=== PATIENT | male | born 1970 | race Caucasian/White ===

== ENCOUNTER 2017-12-04 05:53 | Emergency (ER) ==
[2017-12-04 06:07] VITALS: BP 124/91; TEMP 97.6; BMI 30.4
[2017-12-04] MEDS ORDERED: TORADOL IM STA (06:28)
[2017-12-04] MEDS ORDERED: NORFLEX IM STA (06:28)
[2017-12-04] MEDS ORDERED: STADOL IM STA (06:29)
--- NOTE | 2017-12-04 06:33 | ED.PDOC ---
General ED Provider: Dr. BENTLEY LAND Chief Complaint: Back Pain Stated Complaint: Patient states that he has a history of back pain and sees pain management and is on Percocets for pain control. He states that he recently helped his [id number] move some furniture which make his symptoms worse. pain is located on the mid back and lower back. State he ran out of his percocets for the last 4 days. Time Seen by Physician: 06:20 Mode of Arrival: Walk-In Information Source: Patient Exam Limitations: No limitations Primary Care Provider: AMPARO SILVA Nursing and Triage Documentation Reviewed and Agree: Yes Does patient meet sepsis criteria?: No System Inflammatory Response Syndrome: Not Applicable Sepsis Protocol: For patient's 13 years and over: Temp is 96.8 and below OR 101 and greater Pulse >90 BPM Resp >20/minute Acutely Altered Mental Status Are patient's symptoms suggestive of a new infection, such as: -Pneumonia -Skin, Soft Tissue -Endocarditis -UTI -Bone, Joint Infection -Implantable Device -Acute Abdominal Infection -Wound Infection -Meningitis -Blood Stream Catheter Infection -Unknown Review of Systems - Review Of Systems Constitutional: Reports: No symptoms Eyes: Reports: No symptoms Ears, Nose, Mouth, Throat: Reports: No symptoms Respiratory: Reports: No symptoms Cardiac: Reports: No symptoms GI: Reports: No symptoms : Reports: No symptoms Musculoskeletal: Reports: Back pain Skin: Reports: No symptoms Neurological: Reports: Anxiety Endocrine: Reports: No symptoms Hematologic/Lymphatic: Reports: No symptoms All Other Systems: Reviewed and Negative Past Medical History - Past Medical History Previously Healthy: Yes Endocrine: Reports: None Cardiovascular: Reports: None Respiratory: Reports: None Hematological: Reports: None Gastrointestinal: Reports: GERD Genitourinary: Reports: Kidney stones Neuro/Psych: Reports: CVA, Migraine, Depression Musculoskeletal: Reports: Back Pain Cancer: Reports: None - Surgical History General Surgical History: Reports: Orthopedic (Farhad in the right femur post fall 15 feet 1998), Back Surgery (plate in the neck from fx) - Family History Family History: Reports: Unknown - Social History Smoking Status: Current every day smoker, Heavy tobacco smoker 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 ) Skin: Warm, Dry Neurological: Motor intact, Alert, Oriented Psychiatric: Anxious Re-Evaluation - Re-Evaluation Time of Re-Evaluation: 07:06 Status: Improved Pain Level: much better Critical Care Note - Critical Care Note Total Time (mins): 0 Comments: Patient states his PCP will be out of town for the next 5 days. Course - Course Orders, Labs, Meds: Orders Category Date Time Status Butorphanol Tartrate [Stadol] MEDS 12/04/17 06:29 Discontinued 2 mg IM ONCE STA Ketorolac Tromethamine [Toradol] MEDS 12/04/17 06:28 Discontinued 60 mg IM ONCE STA Medications Discontinued Medications Generic Name Dose Route Start Last Admin Trade Name Freq PRN Reason Stop Dose Admin Butorphanol Tartrate 2 mg 12/04/17 06:29 12/04/17 06:35 Stadol IM 12/04/17 06:30 2 mg ONCE STA Administration Ketorolac Tromethamine 60 mg 12/04/17 06:28 12/04/17 06:36 Toradol IM 12/04/17 06:29 60 mg ONCE STA Administration Vital Signs: Temp Pulse Resp BP Pulse Ox 12/04/17 05:54 97.6 F 84 20 124/91 H 97 Departure - Departure Time of Disposition: 07:08 Disposition: HOME SELF-CARE Discharge Problem: Low back strain Qualifiers: Encounter type: initial encounter Qualified Code(s): S39.012A - Strain of muscle, fascia and tendon of lower back, initial encounter Instructions: Low Back Strain (ED), Lower Back Exercises (ED) Condition: Fair Pt referred to PMD for follow-up: Yes IPMP verified?: No (no narcotis will be prescribed ) Additional Instructions: Follow up with you pain management doctor in 1-2 days Rest Prescriptions: Oxycodone HCl/Acetaminophen [Percocet 7.5-325 mg Tablet] 1 each PO Q8H PRN #25 tablet PRN Reason: severe pain Allergies/Adverse Reactions: Allergies sulfamethoxazole [From Bactrim] Adverse Reaction (Verified 12/04/17 06:09) trimethoprim [From Bactrim] Adverse Reaction (Verified 12/04/17 06:09) Vomiting Home Medications: Ambulatory Orders Aspirin [Aspirin EC] 81 mg PO DAILY 12/04/17 Fenofibrate,Micronized [Fenofibrate] 1 cap PO BEDTIME 12/04/17 Oxycodone HCl/Acetaminophen [Percocet 7.5-325 mg Tablet] 1 each PO Q8H PRN #25 tablet 12/04/17 Oxycodone-Acetaminophe 7.5-325 [Percocet 7.5-325] 1 tab PO TID PRN 12/04/17 Tamsulosin HCl [Flomax] 0.4 mg PO BEDTIME 12/04/17 Disposition Discussed With: Patient, Family
== END 2017-12-04 07:10 | disposition home or self-care (01) ==
LOC: ED 05:53
DX: S39.012A Strain of muscle, fascia and tendon of lower back, initial encounter (principal); X50.9XXA Other and unspecified overexertion or strenuous movements or postures, initial encounter; F17.210 Nicotine dependence, cigarettes, uncomplicated
CPT/HCPCS: 96372; 99283

== ENCOUNTER 2018-11-08 11:17 | Emergency (ER) | payer OTHER ==
[2018-11-08 11:21] VITALS: BMI 29.0
[2018-11-08] MEDS: MORPHINE 2 MG/ML SYRINGE IVP STA (11:56)
[2018-11-08] MEDS: ZOFRAN 4 MG/2 ML IVP STA (11:58)
--- NOTE | 2018-11-08 13:05 | CT ---
EXAM: CT THORAX HISTORY: Chest pain, anteriorly xyphoid region. TECHNIQUE: CT thorax without intravenous contrast. Multiplanar images presented. COMPARISON: 08/25/2018 FINDINGS: Normal heart size. No pericardial effusion is seen. Thoracic aorta is within normal limits on this unenhanced exam. No gross evidence of lymphadenopathy. There may be a small 6 mm nodule in the right upper lobe, axial image 26 not definitely seen on prior study. The nodular opacities previously described in the left posterior lung base have mostly resol naveed with a tiny stable 2 mm nodule remaining present. There is no vascular congestion, pneumothorax or pleural fluid. The bones in the region of the xyphoid process have no abnormality. Spine is within normal limits. There is stabilization hardware of the lower cervical spine. IMPRESSION: 1. No abnormality identified in the region of interest, xyphoid process area. 2. A few scattered nonspecific pulmonary nodules could be postinflammatory. If the patient has risk factors for neoplasia. Follow-up CT in 4-6 months can be considered.
--- NOTE | 2018-11-08 14:45 | CT ---
EXAM: CT angiogram chest HISTORY: Chest pain COMPARISON: CT chest without contrast 11/08/2018 TECHNIQUE: CT angiogram chest performed with intravenous contrast. Coronal and sagittal reformatted images obtained. 3-D reformatted images created. FINDINGS: Thoracic inlet unremarkable. Heart normal in size. No pericardial effusion. Aorta adonis l in caliber. No aortic dissection. Esophagus unremarkable. No lymphadenopathy identified in the c hest. Visualized portion upper abdomen demonstrates no acute abnormality. Mild colonic diverticulos is is incompletely imaged. No acute abnormalities of the bones. Cervical spinal fusion hardware is incompletely imaged. Central airway patent. No airspace consolidation. No pleural effusion. No pn eumothorax. A few scattered nonspecific pulmonary nodules are unchanged from CT chest same day. Mil d bilateral lower airway thickening. No pleural effusion or pneumothorax. No filling defects identi fied in the pulmonary arteries to the segmental level to suggest a pulmonary embolism. Limited evalu ation of portions of the subsegmental pulmonary arteries due to areas of artifact. IMPRESSION: 1. No evidence for pulmonary embolism to the segmental level. 2. Mild bilateral lower airway thickening, may suggest small airways infection/inflammation. No air space consolidation. 3. A few scattered nonspecific pulmonary nodules could be post inflammatory. CT chest follow-up cou ld be considered 4 - 6 months to assure stability.
[2018-11-08] MEDS ORDERED: DILAUDID IM STA (16:10)
[2018-11-08] MEDS ORDERED: DILAUDID 0.5 MG/0.5 ML SYRINGE IM STA (16:13)
[2018-11-08] MEDS: DILAUDID 0.5 MG/0.5 ML SYRINGE IVP STA (16:25)
--- NOTE | 2018-11-08 17:12 | ED.PDOC ---
General ED Provider: Dr. JASON JOHNSON Chief Complaint: Chest Pain Stated Complaint: chest pain midsternal sudden x 1 day pain is intermittent and can entirely be reproduced by palpationof his ant chest wall Time Seen by Physician: 11:20 (his nurse at all times ) Mode of Arrival: Walk-In Information Source: Patient Exam Limitations: No limitations Primary Care Provider: KAROL FLOWERS Nursing and Triage Documentation Reviewed and Agree: Yes Does patient meet sepsis criteria?: No System Inflammatory Response Syndrome: Not Applicable Sepsis Protocol: For patient's 13 years and over: Temp is 96.8 and below OR 101 and greater Pulse >90 BPM Resp >20/minute Acutely Altered Mental Status Are patient's symptoms suggestive of a new infection, such as: -Pneumonia -Skin, Soft Tissue -Endocarditis -UTI -Bone, Joint Infection -Implantable Device -Acute Abdominal Infection -Wound Infection -Meningitis -Blood Stream Catheter Infection -Unknown Cardiovascular Complaint Exam - Chest Pain Complaint/Exam Onset: Gradual Duration: 1 day Symptoms Are: Still present Timing: Intermittent Length of Chest Pain Episodes: 1 hour Initial Severity: Severe Current Severity: Moderate Location: Reports: Midsternal Pain Radiates: Reports: None Character: Reports: Sharp Aggravating: Reports: Movement Alleviating: Reports: Rest, Spontaneous resolution. Denies: OTC meds (none taken) Associated Signs and Symptoms: Denies: Diaphoresis, Nausea, Vomiting, Fever, Palpitations, Cough, Hemoptysis, Back pain, Abdominal pain, Dizziness, Short of air, Calf pain, Calf swelling Related History: Reports: Similar episode Related Surgical History: Reports: None History of Healthcare-Acquired Pneumonia: Reports: No AMI/ACS Risk Factors: Reports: Sedentary TAD Risk Factors: Reports: None Pulmonary Embolism Risk Factors: Reports: Bedrest Prior Care for this Complaint: No Recent Stress Test: No Recent Echo/LV Function: No JVD Present: No Subcutaneous Emphysema Present: No Diminshed Breath Sounds: No Reproducible Chest Wall Pain: No Bilateral Pulses Present: No Unequal Pulses Noted: No If Risk Factors for AMI/ACS Consider: EKG, Cardiac Enzymes Quality Indicators For Acute OR or Cardiac Chest Pain: EKG in 10min. Quality Indicator For Non-Traumatic Chest Pain/Syncope: EKG Performed Review of Systems - Review Of Systems Constitutional: Reports: No symptoms Eyes: Reports: No symptoms Ears, Nose, Mouth, Throat: Reports: No symptoms Respiratory: Reports: No symptoms Cardiac: Reports: Chest pain GI: Reports: No symptoms : Reports: No symptoms Musculoskeletal: Reports: No symptoms Skin: Reports: No symptoms Neurological: Reports: No symptoms Endocrine: Reports: No symptoms Hematologic/Lymphatic: Reports: No symptoms All Other Systems: Reviewed and Negative Past Medical History - Past Medical History Previously Healthy: Yes Endocrine: Reports: None Cardiovascular: Reports: None Respiratory: Reports: None Hematological: Reports: None Gastrointestinal: Reports: GERD Genitourinary: Reports: Kidney stones Neuro/Psych: Reports: CVA, Migraine, Depression Musculoskeletal: Reports: Back Pain Cancer: Reports: None - Surgical History General Surgical History: Reports: Orthopedic (Farhad in the right femur post fall 15 feet 1998), Back Surgery (plate in the neck from fx) - Family History Family History: Reports: Unknown - Social History Smoking Status: Current every day smoker, Heavy tobacco smoker Hx Substance Use: Yes (states, "sober for 2 yrs") Alcohol Screening: None Physical Exam - Physical Exam Appearance: Well-appearing, No pain distress, Well-nourished Eyes: COREY, EOMI, Conjunctiva clear ENT: Ears normal, Nose normal, Oropharynx normal Respiratory: Airway patent, Breath sounds clear, Breath sounds equal, Respirations nonlabored Cardiovascular: RRR, Pulses normal, No rub, No murmur GI/: Soft, Nontender, No masses, Bowel sounds normal, No Organomegaly Musculoskeletal: Normal strength, ROM intact, No edema, No calf tenderness Skin: Warm, Dry, Normal color Neurological: Sensation intact, Motor intact, Reflexes intact, Cranial nerves intact, Alert, Oriented Psychiatric: Affect appropriate, Mood appropriate Interpretation - Radiology Interpretation Radiology Interpretation By: Radiologist Radiology Results: No acute changes Exam Interpreted: CT Scan Radiology Interpretation By: Radiologist - Scallop Raker Rate: Rambo Rhythm: Sinus - EKG Interpretation Rate: Rambo Rhythm: Sinus [place]: Left ST Segment: Other (LAFB) Rate: Rambo Rhythm: Sinus [place]: Left Critical Care Note - Critical Care Note Total Time (mins): 0 Course - Course Hematology/Chemistry: 11/08/18 11:55 11/08/18 11:55 Orders, Labs, Meds: Lab Review 11/08/18 11/08/18 11/08/18 11:55 11:55 16:20 WBC 9.30 RBC 4.59 L Hgb 12.9 L Hct 39.1 L MCV 85.2 MCH 28.1 MCHC 33.0 RDW Coeff of Dread 14.7 Plt Count 271 Immature Gran % (Auto) 0.3 Neut % (Auto) 57.9 Lymph % (Auto) 29.9 [place] % (Auto) 7.1 Eos % (Auto) 3.9 Baso % (Auto) 0.9 Immature Gran # (Auto) 0.0 Neut # (Auto) 5.4 Lymph # (Auto) 2.8 [place] # (Auto) 0.7 Eos # (Auto) 0.4 Baso # (Auto) 0.1 Sodium 139.2 Potassium 3.89 Chloride 109.1 H Carbon Dioxide 23.7 Anion Gap 10.29 BUN 12.0 Creatinine 0.80 Estimated GFR (MDRD) 104.00 BUN/Creatinine Ratio 15.00 Glucose 102.3 Calcium 9.87 Total Bilirubin 0.53 AST 20.0 ALT 17.2 Alkaline Phosphatase 97.0 Total Creatine Kinase 51.0 L 106.1 Troponin I < 0.012 < 0.012 Total Protein 7.79 Albumin 4.60 Globulin 3.19 Albumin/Globulin Ratio 1.44 Orders Category Date Time Status EKG-(ED ONLY) Stat CARDIO 11/08/18 11:44 Completed EKG-(ED ONLY) Stat CARDIO 11/08/18 13:33 Completed EKG-(ED ONLY) Stat CARDIO 11/08/18 16:09 Completed NPO REMINDER: IMAGING ONCE CARE 11/08/18 13:33 Active ED IV/MEDIPORT/POWERPORT .ONCE EMERGENCY 11/08/18 11:44 Active CBC W/ AUTO DIFF Stat LAB 11/08/18 11:55 Completed COMPREHENSIVE METABOLIC PANEL Stat LAB 11/08/18 11:55 Completed CREATINE KINASE Stat LAB 11/08/18 11:55 Completed CREATINE KINASE Stat LAB 11/08/18 16:20 Completed TROPONIN I Stat LAB 11/08/18 11:55 Completed TROPONIN I Stat LAB 11/08/18 16:20 Completed 0.9 % Sodium Chloride [Saline Flush] MEDS 11/08/18 11:44 Active 1 syr IVF PRN PRN Hydromorphone HCl [Dilaudid 0.5 mg/0.5 ml Syringe] MEDS 11/08/18 16:16 Discontinued 0.5 mg IVP ONCE STA Morphine Sulfate [Morphine 2 mg/ml Syringe] MEDS 11/08/18 11:45 Discontinued 4 mg IVP ONCE STA Ondansetron HCl/Pf [Zofran 4 mg/2 ml] MEDS 11/08/18 11:45 Discontinued 4 [address]P ONCE STA [address] CHEST PE PROTOCOL Stat RADS 11/08/18 13:[address] CHEST W/O CONTRAST Stat RADS 11/08/18 11:44 Completed Medications Generic Name Dose Route Start Last Admin Trade Name Freq PRN Reason Stop Dose Admin Sodium Chloride 1 syr 11/08/18 11:44 11/08/18 11:57 Saline Flush IVF 1 syr PRN PRN Administration To flush IV Discontinued Medications Generic Name Dose Route Start Last Admin Trade Name Freq PRN Reason Stop Dose Admin Hydromorphone HCl 0.5 mg 11/08/18 16:16 11/08/18 16:25 Dilaudid 0.5 Mg/0.5 Ml Syringe IVP 11/08/18 16:17 0.5 mg ONCE STA Administration Morphine Sulfate 4 mg 11/08/18 11:45 11/08/18 11:56 Morphine 2 Mg/Ml Syringe IVP 11/08/18 11:46 4 mg ONCE STA Administration Ondansetron HCl 4 mg 11/08/18 11:45 11/08/18 11:58 Zofran 4 Mg/2 Ml IVP 11/08/18 11:46 4 mg ONCE STA Administration Vital Signs: Temp Pulse Resp BP Pulse Ox 11/08/18 17:20 98.5 F 53 L 18 136/94 H 98 11/08/18 11:18 97.1 F L 76 18 112/77 95 OTNY Risk Score TONY Risk Score: Risk Score Odds of by 30D 0 0.1 (0.1-0.2) 1 0.3 (0.2-0.3) 2 0.4 (0.3-0.5) 3 0.7 (0.6-0.9) 4 1.2 (1.0-1.5) 5 2.2 (1.9-2.6) 6 3.0 (2.5-3.6) 7 4.8 (3.8-6.1) Departure - Departure Time of Disposition: 17:26 Disposition: TSF SHORT-TRM HOSP Discharge Problem: Chest pain Instructions: Chest Pain (ED), Angina (DC), Angina (ED), Chest Wall Pain (ED) Condition: Good Pt referred to PMD for follow-up: Yes IPMP verified?: No Additional Instructions: Please call your Family Physician as soon as possible to schedule a follow-up appointment. Allergies/Adverse Reactions: Allergies sulfamethoxazole [From Bactrim] Adverse Reaction (Verified 11/08/18 11:28) trimethoprim [From Bactrim] Adverse Reaction (Verified 11/08/18 11:28) Vomiting Home Medications: Ambulatory Orders Aspirin [Aspirin EC] 81 mg PO DAILY 12/04/17 Oxycodone-Acetaminophe 7.5-325 [Percocet 7.5-325] 1 tab PO TID PRN 12/04/17 Tamsulosin HCl [Flomax] 0.4 mg PO BEDTIME 12/04/17 Gabapentin [Neurontin] 600 mg PO TID 11/08/18 Pantoprazole Sodium [Protonix] 40 mg PO QDAC 11/08/18 Temazepam [Restoril] 15 mg PO BEDTIME 11/08/18
[2018-11-08 17:21] VITALS: BP 136/94; TEMP 98.5
[2018-11-08] MEDS: ASPIRIN CHEWABLE PO STA (17:31)
== END 2018-11-08 17:45 | disposition short-term general hospital (02) ==
LOC: ED 11:17
DX: R07.9 Chest pain, unspecified (principal); Z86.73 Personal history of transient ischemic attack (TIA), and cerebral infarction without residual deficits; F17.210 Nicotine dependence, cigarettes, uncomplicated; Z79.899 Other long term (current) drug therapy
CPT/HCPCS: 36415; 80053; 82550; 84484; 85025; 93005; 93010; 96374; 96375; 99285

== ENCOUNTER 2018-11-08 17:51 | Outpatient (CLI) ==
[2018-11-08 11:21] VITALS: BMI 29.0
== END 2018-11-08 18:11 | disposition short-term general hospital (02) ==
LOC: AMBL 17:51
PROVIDERS: ATTEND Internal Medicine
DX: R07.89 Other chest pain (principal)